=== PATIENT | female | born 1940 | race Hispanic/Latino ===

== ENCOUNTER 2023-12-13 11:51 | Inpatient (IN) | payer OTHER ==
[2023-12-13 12:12] LABS: #Basophils Less than 0.03 10x3/uL (0.0-0.2); %Basophils 0.3 % (0.0-1.0); %Eosinophils 2.3 % (0.0-10.0); %Lymphocytes 33.4 % (21.0-51.0); %Monocytes 8.8 % (0.0-10.0); %Neutrophils 54.7 % (42.0-75.0); Hematocrit 33.4 % (36.0-47.0); Hemoglobin 11.1 g/dL (12.0-16.0); Mean Corpuscular HGB CONC 33.2 g/dL (32.0-36.0); Mean Corpuscular Hemoglobin 31.6 pg (27.0-31.0); Mean Corpuscular Volume 95.2 fL (78.0-98.0); Mean Platelet Volume 10.4 fL (7.4-10.4); Platelet Count 156 10x3/uL (130-400); Red Blood Cell (RBC) Count 3.51 mill/uL (4.20-5.40)
[2023-12-13 12:33] LABS: INR-International Normal Ratio 1.1; PTT 27.1 sec (22.9-36.1); Prothrombin Time 13.9 sec (12.0-14.7)
[2023-12-13 12:37] LABS: Troponin I Less than 0.010 ng/mL (< 0.028)
[2023-12-13 12:42] LABS: ALT (SGPT) 18 U/L (8-55); AST (SGOT) 17 U/L (5-34); Albumin 4.1 g/dL (3.4-4.8); Alkaline Phosphatase 57 U/L (40-110); Anion Gap 14 mmol/L (10-20); BUN (Urea Nitrogen) 33 mg/dL (9.8-20.1); Bilirubin, Total 0.5 mg/dL (0.2-1.2); Calc. Creatinine Clearance 0 mL/min (70-130); Carbon Dioxide 25 mmol/L (23-31); Chloride 108 mmol/L (98-107); Estimated GFR 24; Globulin 2.6 g/dL (2.4-3.5); Glucose 179 mg/dL (83-110); Potassium 3.6 mmol/L (3.5-5.1); Protein, Total 6.7 g/dL (5.8-8.1); Sodium 143 mmol/L (136-145)
[2023-12-13] MEDS ORDERED: Iopamidol-370 76% 500 ML MDV (1 ML CHARGE) ONE (12:42)
[2023-12-13] MEDS ORDERED: Tenecteplase 50 MG ONE (13:35)
[2023-12-13 14:43] LABS: Bilirubin Negative (Negative); Blood, Urine Negative (Negative); Clarity Turbid (Clear); Glucose, Urine (Dipstick) Normal (Negative); Ketone, Urine Negative (Negative); Leukocyte 500 Leu/uL (Negative); Nitrite Negative (Negative); Protein, Urine (Dipstick) Negative (Neg-Trace); RBC/HPF 0-3 HPF (0-3); Specific Gravity, Urine 1.046 (1.002-1.036); Urobilinogen Normal mg/dL (Less than 2)
[2023-12-13 14:57] LABS: Bacteria/HPF 4+ HPF (None Seen)
[2023-12-13 14:58] LABS: WBC/HPF Greater than 50 HPF (0-3)
[2023-12-13] MEDS ORDERED: Acetaminophen 325 MG TAB PO PRN (15:04)
[2023-12-13] MEDS ORDERED: Glucagon 1 MG/ML KIT IM PRN (15:30)
[2023-12-13] MEDS ORDERED: Dextrose 50% Abboject 50 ML SYRINGE SLOW IVP PRN (15:30)
[2023-12-13] MEDS ORDERED: Dextrose 5% in Water 1,000 ML IV PRN (15:30)
[2023-12-13] MEDS ORDERED: Lactated Ringer's 1,000 ML IV SCH (15:45)
[2023-12-13] MEDS: Lactated Ringer's 1,000 ML IV SCH (17:12)
[2023-12-13] MEDS ORDERED: hydrALAZINE 20 MG/ML VIAL ONE (17:39)
[2023-12-13] MEDS ORDERED: Morphine 2 MG/ML VIAL ONE (17:40)
[2023-12-13] MEDS: hydrALAZINE 20 MG/ML VIAL SLOW IVP PRN (17:53)
[2023-12-13] MEDS: Morphine 4 MG/ML VIAL SLOW IVP PRN (17:54)
[2023-12-13] MEDS: Metoclopramide HCl 10 MG (2 mL) VIAL IVP SCH (21:42)
[2023-12-14] MEDS: Ciprofloxacin 500 MG TAB PO SCH (05:11)
[2023-12-14 06:39] VITALS: BMI 25.0
[2023-12-14] MEDS: Oxybutynin ER 5 MG TAB PO SCH (07:35)
[2023-12-14] MEDS: Acetaminophen 325 MG TAB PO PRN (07:35)
[2023-12-14] MEDS: Cholecalciferol (Vitamin D3) 400 UNITS TAB PO SCH (07:35)
[2023-12-14] MEDS: Pantoprazole DR 40 MG TAB PO SCH (07:35)
[2023-12-14] MEDS: Atorvastatin Calcium 40 MG TAB PO SCH (07:35)
[2023-12-14] MEDS ORDERED: Fenofibrate 48 MG TAB PO SCH (09:00)
[2023-12-14] MEDS ORDERED: Carvedilol 25 MG TAB PO SCH (21:00)
[2023-12-15 05:43] LABS: #Basophils 0.03 10x3/uL (0.0-0.2); %Basophils 0.5 % (0.0-1.0); %Eosinophils 2.9 % (0.0-10.0); %Lymphocytes 37.3 % (21.0-51.0); %Monocytes 9.9 % (0.0-10.0); %Neutrophils 49.1 % (42.0-75.0); Hematocrit 32.5 % (36.0-47.0); Hemoglobin 10.6 g/dL (12.0-16.0); Mean Corpuscular HGB CONC 32.6 g/dL (32.0-36.0); Mean Corpuscular Hemoglobin 31.6 pg (27.0-31.0); Mean Platelet Volume 10.4 fL (7.4-10.4); Platelet Count 161 10x3/uL (130-400); Red Blood Cell (RBC) Count 3.35 mill/uL (4.20-5.40)
[2023-12-15 06:43] LABS: ALT (SGPT) 13 U/L (8-55); AST (SGOT) 14 U/L (5-34); Albumin 3.7 g/dL (3.4-4.8); Alkaline Phosphatase 53 U/L (40-110); Anion Gap 12 mmol/L (10-20); BUN (Urea Nitrogen) 26 mg/dL (9.8-20.1); Bilirubin, Total 0.4 mg/dL (0.2-1.2); Calc. Creatinine Clearance 21 mL/min (70-130); Calcium 9.7 mg/dL (7.8-10.44); Carbon Dioxide 25 mmol/L (23-31); Chloride 108 mmol/L (98-107); Estimated GFR 25; Globulin 2.4 g/dL (2.4-3.5); Glucose 149 mg/dL (83-110); Potassium 3.7 mmol/L (3.5-5.1); Protein, Total 6.1 g/dL (5.8-8.1); Sodium 141 mmol/L (136-145)
[2023-12-15] MEDS: Aspirin Chewable 81 MG TAB PO SCH (09:26)
[2023-12-15] MEDS: Gentamicin 80 MG/2 ML VIAL IM SCH (09:27)
[2023-12-15] MEDS: Clopidogrel Bisulfate 75 MG TAB PO SCH (09:27)
[2023-12-15] MEDS: Enoxaparin 30 MG (0.3 mL) SYRINGE SC SCH (09:31)
[2023-12-15 12:50] VITALS: BP 122/75; TEMP 98.1
[2023-12-15] MEDS: Insulin Lispro 100 UNIT/ML 10 ML VIAL SC PRN (13:02)
== END 2023-12-15 16:00 | disposition home or self-care (01) | DRG 62 ==
LOC: EDBD 11:51 → ERS 11:51 → ERHOLD 14:57 → CCU 18:52 → 2SE 12-14 14:05
PROVIDERS: ADMIT Surgery; ATTEND Family Medicine
PROC: 0T9B70Z Drainage of Bladder with Drainage Device, Via Natural or Artificial Opening (ICD-10-PCS; principal; 2023-12-13)
PROC: 3E03317 Introduction of Other Thrombolytic into Peripheral Vein, Percutaneous Approach (ICD-10-PCS; 2023-12-13)
DX: G45.9 Transient cerebral ischemic attack, unspecified (principal); N39.0 Urinary tract infection, site not specified; E03.9 Hypothyroidism, unspecified; E11.22 Type 2 diabetes mellitus with diabetic chronic kidney disease; N18.31 Chronic kidney disease, stage 3a; E78.5 Hyperlipidemia, unspecified; K21.9 Gastro-esophageal reflux disease without esophagitis; I12.9 Hypertensive chronic kidney disease with stage 1 through stage 4 chronic kidney disease, or unspecified chronic kidney disease; I25.10 Atherosclerotic heart disease of native coronary artery without angina pectoris; M15.9 Polyosteoarthritis, unspecified; Z66 Do not resuscitate; Z90.710 Acquired absence of both cervix and uterus; Z98.890 Other specified postprocedural states; Z87.891 Personal history of nicotine dependence; Z79.82 Long term (current) use of aspirin; Z79.899 Other long term (current) drug therapy
CPT/HCPCS: 36415; 36416; 51702; 70450; 70496; 70498; 70551; 80053; 81001; 84484; 85025; 85610; 85730; 87077; 87086; 87186; 93005; 93306; 93970; 96374; J0360; J1580; J1650; J1815; J2272; J2765; J3101; J7120; Q9967

== ENCOUNTER 2024-10-22 07:50 | Outpatient (CLI) | payer OTHER | END 2024-10-22 07:51 | disposition home or self-care (01) | LOC: NM 07:50 | PROVIDERS: ATTEND Physician Assistant Medical | DX: K21.9 Gastro-esophageal reflux disease without esophagitis (principal); K44.9 Diaphragmatic hernia without obstruction or gangrene; R11.2 Nausea with vomiting, unspecified; K30 Functional dyspepsia; I12.9 Hypertensive chronic kidney disease with stage 1 through stage 4 chronic kidney disease, or unspecified chronic kidney disease; E11.22 Type 2 diabetes mellitus with diabetic chronic kidney disease; N18.4 Chronic kidney disease, stage 4 (severe); E55.9 Vitamin D deficiency, unspecified | CPT/HCPCS: 78264; A9541; 36415; 80048; 82040; 83735; 83970; 84100; 85025 ==

== ENCOUNTER 2024-12-10 08:39 | Outpatient (CLI) | payer OTHER, MEDICAID | END 2024-12-10 08:40 | disposition home or self-care (01) | LOC: RAD 08:39 | PROVIDERS: ATTEND Internal Medicine | DX: R06.00 Dyspnea, unspecified (principal) | CPT/HCPCS: 71046 ==